=== PATIENT | female | born 1995 | race Two or more races ===

== ENCOUNTER 2017-10-11 21:11 | Emergency (ER) | payer SELFPAY ==
[2017-10-11 21:15] VITALS: BP 109/61; PULSE 76; TEMP 98.8; BMI 21.6
--- NOTE | 2017-10-11 22:20 | PDOC ---
History of Present Illness - General Chief Complaint: Nausea/Vomiting Stated Complaint: VOMITING Time Seen by Provider: 10/11/17 21:58 History Source: Patient Exam Limitations: No Limitations - History of Present Illness Initial Comments: This is a 22 YOF with h/o shoulder dislocation with ED reduction earlier this year who presents BIBA c/o abdominal pain, nausea, and NBNB vomiting >10 episodes since this morning. She ate very little yesterday because she was busy and had low appetite but otherwise had not symptoms yesterday. She drank 1.5 [employer] iced teas last night but this is not an abnormal amount of EtOH for her. She started her menstrual period early this morning and it is about 1.5 weeks early but otherwise is normal. She had the onset of umbilical and suprapubic pain concurrent with the onset of nausea and vomiting this morning. The pain is a non-radiating 4/10 cramping present only while she is vomiting, otherwise not exacerbated or alleviated by anything, and she has not taken medications for this or had prior episodes. She has been unable to keep down solid foods, smoothies, or even water today, and she also has chills and four episodes of diarrhea today. She denies fever, dysuria, vaginal discharge, questionable food consumption, or recent sick contacts. Past History - Past Medical History Allergies/Adverse Reactions: Allergies Allergy/AdvReac Type Severity Reaction Status Date / Time No Known Allergies Allergy Verified 10/11/17 23:01 Home Medications: Ambulatory Orders Ondansetron [Zofran Odt -] 4 mg SL BID #14 od.tablet 10/12/17 - Suicide/Smoking/Psychosocial Hx Smoking History: Never smoked Have you smoked in the past 12 months: No Information on smoking cessation initiated: No Hx Alcohol Use: No Drug/Substance Use Hx: No *Physical Exam - Vital Signs Last Vital Signs Temp Pulse Resp BP Pulse Ox 98.8 F 76 20 109/61 100 10/11/17 21:13 10/11/17 21:13 10/11/17 21:13 10/11/17 21:13 10/11/17 21:13 ED Treatment Course - LABORATORY CBC & Chemistry Diagram: 10/12/17 00:15 10/12/17 00:15 Medical Decision Making - Medical Decision Making 22 YOF BIBA c/o abdominal pain, nausea, and NBNB vomiting >10 episodes since this morning. On exam VS wnl and she has mild suprapubic and umbilical ttp, but no distress and no peritoneal signs, no vomiting. DDX IBNLT gastroenteritis (likely viral), wwo ectopic, GERD, PUD, pancreatitis, UTI/pyelo, appendicitis, etc. Ordered is CBCD, CMP, Mg, Phos, lipase, UA cx hCG, Reglan, IVF. 10/12/17 01:36 Labs result without e/o acute causative abnormality, urine negative. The patient feels much better s/p IVF and Reglan, states pain is resolved, seen walking around the ED. She is given a cup of water after stating she is very thirsty. She is appropriate for DC home with close OP followup. Referral is given for resident clinic primary followup. Return precautions are discussed and E-Rx sent to her pharmacy for Zofran. *DC/Admit/Observation/Transfer Diagnosis at time of Disposition: Gastroenteritis - Discharge Dispostion Disposition: HOME Condition at time of disposition: Stable Admit: No - Prescriptions Prescriptions: Ondansetron [Zofran Odt -] 4 mg SL BID #14 od.tablet - Referrals Referrals: Darshana Neil MD [Staff Physician] - - Patient Instructions Printed Discharge Instructions: DI for Vomiting -- Adult Additional Instructions: You were seen in the ER for nausea, vomiting, diarrhea, and abdominal pain. We did blood and urine tests and there were no abnormalities that were concerning. You are not according to our test. We gave you IV fluids and a medication called Reglan for the nausea, and this helped with your symptoms. We are sending an electronic prescription for an anti-nausea medicine to your pharmacy, so please take this if you need it. Follow up with the primary care clinic (we are providing referral info in this packet). Return for any new or worsening symptoms like bloody vomit or diarrhea, inability to keep down liquids even with the anti-nausea medicine use, severe abdominal pain, fever, or other symptoms. - Post Discharge Activity
--- NOTE | 2017-10-11 22:22 | PDOC ---
Attending Attestation - HPI HPI: 10/12/17 00:08 Patient is a 22 year old female with a significant past medical history of who presents to the ED with complaints of nausea and vomiting that began this morning. Patient reports experiencing intermittent episodes of nausea that began this morning while experiencing x10 episodes of vomiting throughout the day. She reports experiencing intermittent episodes of diffuse abdominal pain secondary to vomiting. Patient reports abdominal pain to be an aching 4/10 pain that does not radiate to secondary locations. She reports experiencing x4 episodes of diarrhea yesterday afternoon but is unsure if it is related to her other symptoms. Patient states being in contact with other sick individuals but states they all have colds with no vomiting episodes. She reports being sexually active but denies any chance of being . Denies chest pain, SOB. Denies constipation, dysuria, hematuria. Denies fever, chills. Denies out of state travel. Denies any other symptoms. Allergies: None Social history: No smoking. Social Drinker. No illicit drugs. Surgical history: None PMD: None - Physicial Exam PE: 10/12/17 00:08 Vitals: Triage Vital signs reviewed General Appearance: no acute distress, well nourished well developed Head: Atraumatic Chest Wall: Nontender Cardiac: Regular rate and rhythm, no murmurs, no rubs, no gallops Lungs: Clear to auscultation bilateral, good air movement bilaterally Abdomen: Soft, non distended, normal bowel sounds, non tender to palpation Extremities: Full range of motion to all extremities, no cyanosis, clubbing, or edema Skin: Warm and dry, no rashes or lesions, no rash, no petechiae Neuro: AOX3; Cranial Nerves 2-12 grossly intact, Strength intact to all extremities, Sensation intact to all extremities, gait normal Psych: Normal mood, normal affect - Medical Decision Making 10/12/17 00:08 Documentation prepared by Mynor Vargas, acting as medical insurance clerk for Natalio Galdamez MD, MD/DO. <Mynor Vargas - Last Filed: 10/12/17 06:17> - Resident Resident Name: Kristina Dutton - ED Attending Attestation I have performed the following: I have examined & evaluated the patient, The case was reviewed & discussed with the resident, I agree w/resident's findings & plan, Exceptions are as noted - Medical Decision Making 12/19/17 06:41 Reevaluation well-appearing no apparent distress. Repeat abdominal examination benign patient now tolerating fluids likely nausea vomiting from viral etiology. We'll discharge with antiemetics PCP follow-up and strict return instructions. <Natalio Galdamez - Last Filed: 10/12/17 06:42>
[2017-10-11] MEDS ORDERED: METOCLOPRAMIDE HCL INJECTION 10 MG/2 ML VIAL IVPUSH ONE (22:49)
[2017-10-11] MEDS ORDERED: SODIUM CHLORIDE 0.9% 1000 ML INFUS.BAG IV ONE (22:49)
[2017-10-11] MEDS ORDERED: METOCLOPRAMIDE HCL INJECTION 10 MG/2 ML VIAL ONE (23:01)
[2017-10-12 00:40] LABS: BASO % 0.4 % (0-2.0); MCH 25.3 pg (25.7-33.7); MCHC 32.6 g/dl (32.0-36.0); MEAN CELL VOLUME 77.4 fl (80-96); MEAN PLT VOLUME 10.3 fl (7.5-11.1); PLATELET COUNT 241 K/MM3 (134-434); RDW 14.2 % (11.6-15.6); WHITE BLOOD COUNT 6.5 K/mm3 (4.0-10.0)
[2017-10-12 00:41] LABS: URINE APPEARANCE CLOUDY; URINE BILIRUBIN NEGATIVE (NEGATIVE); URINE BLOOD 1+ (NEGATIVE); URINE COLOR YELLOW; URINE GLUCOSE (UA) NEGATIVE (NEGATIVE); URINE KETONE 2+ (NEGATIVE); URINE LEUK ESTERASE NEGATIVE (NEGATIVE); URINE NITRITE NEGATIVE (NEGATIVE); URINE UROBILINOGEN NEGATIVE mg/dL (0.2-1.0)
[2017-10-12 00:47] LABS: URINE PROTEIN 1+ (NEGATIVE)
[2017-10-12 01:03] LABS: ALBUMIN 4.4 g/dl (3.4-5.0); ALK PHOS 42 U/L (45-117); BILIRUBIN,TOTAL 0.4 mg/dL (0.2-1.0); CALCIUM 9.5 mg/dL (8.5-10.1); CO2 25 mmol/L (21-32); CREATININE 0.8 mg/dL (0.55-1.02); GLUCOSE,RANDOM 71 mg/dL (74-106); PHOSPHOROUS 3.8 mg/dL (2.5-4.9); SGOT/AST 15 U/L (15-37); SGPT/ALT 18 U/L (12-78); TOT PROT 8.2 g/dl (6.4-8.2)
[2017-10-12 01:57] LABS: ANION GAP 15 (8-16)
[2017-10-12 09:01] LABS: URINE LEUK ESTERASE Negative (NEGATIVE)
== END 2017-10-12 02:24 | disposition home or self-care (01) ==
LOC: JER 21:11
PROC: 3E0337Z Introduction of Electrolytic and Water Balance Substance into Peripheral Vein, Percutaneous Approach (ICD-10-PCS; principal; 2017-10-11)
PROC: 3E033GC Introduction of Other Therapeutic Substance into Peripheral Vein, Percutaneous Approach (ICD-10-PCS; 2017-10-11)
DX: K52.9 Noninfective gastroenteritis and colitis, unspecified (principal)
CPT/HCPCS: 36415; 80053; 81003; 81015; 83735; 84100; 84703; 85025; 87086; 99282-25